=== PATIENT | male | born 1960 | race Caucasian/White ===

== ENCOUNTER 2021-01-25 18:36 | Emergency (ER) | payer OTHER ==
[2021-01-25] MEDS ORDERED: HYDROmorphone 1 MG/ML Syringe IM ONE (19:20)
--- NOTE | 2021-01-25 19:30 | EDM.PDOC ---
ED HPI GENERAL MEDICAL PROBLEM - General Chief Complaint: Upper Extremity Injury/Pain Stated Complaint: RT SHOULDER PAIN Time Seen by Provider: 01/25/21 19:09 Source of Information: Reports: Patient History Limitations: Reports: No Limitations - History of Present Illness INITIAL COMMENTS - FREE TEXT/NARRATIVE: 60-year-old male presents to the emergency department this evening with complaints of right shoulder injury. Patient states he was lifting overhead weights on an incline bench when he developed right shoulder pain. Patient states that the pain was sudden and sharp stabbing. Patient stopped lifting and ice the area and took 1 Aleve and attempted to go to bed for the night however he states his left shoulder is so painful that he cannot rest. 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 Patient is unable to raise his arm laterally or in front of him due to the pain in his anterior shoulder specifically at the glenohumeral joint area. Onset: Today, Sudden Right Upper Arm Pain Score (Numeric/FACES): 8 - Related Data Allergies Allergy/AdvReac Type Severity Reaction Status Date / Time No Known Allergies Allergy Verified 01/25/21 18:47 Home Meds: Home Meds Amino Acids. 1 dose PO DAILY 01/25/21 [History] Creatine. 1 dose PO DAILY 01/25/21 [History] Past Medical History - Past Surgical History Musculoskeletal Surgical History: Reports: Arthroscopic Knee, Other (See Below) Other Musculoskeletal Surgeries/Procedures:: discectomy x2, L5 fusion, meniscus repair Social & Family History - Tobacco Use Tobacco Use Status *Q: Never Tobacco User Second Hand Smoke Exposure: No - Recreational Drug Use Recreational Drug Use: No Review of Systems - Review of Systems Review Of Systems: Comprehensive ROS is negative, except as noted in HPI. ED EXAM, GENERAL - Physical Exam Exam: See Below Exam Limited By: No Limitations General Appearance: Alert, WD/WN, Mild Distress Ears: Normal External Exam, Hearing Grossly Normal Nose: Normal Inspection Throat/Mouth: Normal Inspection, Normal Lips, Normal Voice, No Airway Compromise Head: Atraumatic, Normocephalic Neck: Normal Inspection, Supple, Non-Tender, Full Range of Motion Respiratory/Chest: No Respiratory Distress, No Accessory Muscle Use Cardiovascular: Normal Peripheral Pulses Peripheral Pulses: 2+: Radial (L), Radial (R) (Male) Exam: Deferred Rectal (Males) Exam: Deferred Back Exam: Normal Inspection, Full Range of Motion Extremities: Normal Inspection, No Pedal Edema, Normal Capillary Refill, Limited Range of Motion (Right shoulder unable to raise right arm laterally or anteriorly due to discomfort). No: Normal Range of Motion, Non-Tender (Anterior humeral head is painful with palpation) Neurological: Alert, Oriented, Normal Cognition Psychiatric: Normal Affect, Normal Mood Skin Exam: Warm, Dry, Intact, Normal Color, No Rash Lymphatic: No Adenopathy Course - Vital Signs Text/Narrative:: 60-year-old male presents to the emergency department complaints of a right shoulder injury. Patient was lifting weights this evening above head on an incline bench when he developed sudden sharp stabbing shearing pain to his right anterior shoulder area. Denies hearing up popping, cracking or feeling any tearing however he states that after he stopped he had so much pain he was unable to raise his right arm. He states he did take an Aleve at that time and ice the area and then attempted to go to bed however he said it was so painful that he cannot sleep. Upon assessment the patient is unable to raise his arm laterally or out in front of him due to pain in his glenohumeral area. Once his arms are raised laterally it is not painful for him to push down against resistance however lifting up against resistance is exquisitely painful. I have ordered an x-ray of the right shoulder area. And pain medication Last Recorded V/S: Last Vital Signs Temp 97.1 F 01/25/21 18:45 Pulse 69 01/25/21 18:45 Resp 16 01/25/21 18:45 BP Pulse Ox 98 01/25/21 18:45 - Orders/Labs/Meds Orders: Active Orders 24 hr Category Date Time Status Shoulder Comp Rt [CR] Stat Exams 01/25/21 19:19 Taken Meds: Medications Discontinued Medications Generic Name Dose Route Start Last Admin Trade Name Linda PRN Reason Stop Dose Admin Hydromorphone HCl 1 mg 01/25/21 19:20 01/25/21 19:32 Hydromorphone 1 Mg/Ml Syringe IM 01/25/21 19:21 1 mg ONETIME ONE Administration Departure - Departure Time of Disposition: 20:32 Disposition: Home, Self-Care 01 Condition: Good Clinical Impression: Right shoulder injury Qualifiers: Encounter type: initial encounter Qualified Code(s): S49.91XA - Unspecified injury of right shoulder and upper arm, initial encounter - Discharge Information Instructions: Shoulder Pain, [id number] Referrals: Alex Poole MD [Primary Care Provider] - Forms: ED Department Discharge Additional Instructions: Were seen in the emergency department this evening with complaints of right shoulder injury after lifting weights. An x-ray was completed and no acute fractures are appreciated. You are also given a shot of pain medication called Dilaudid which did not seem to help much. I have given your prescription for Percocet you may take 1-2 tabs every 6 hours as needed for more severe pain. Ice the area 30 minutes at a time every 3 hours while awake. May take ibuprofen 600 mg every 6 hours as needed for pain or Aleve 2 tabs every 12 hours as needed for pain. Recommended using an arm sling and you did not want this. You will need to follow up with Dr. Mariee, orthopaedic surgeon. His clinic number is [phone]. Sepsis Event Note (ED) - Evaluation Sepsis Screening Result: No Definite Risk - Focused Exam Vital Signs: Vital Signs Temp Pulse Resp Pulse Ox 01/25/21 18:45 97.1 F 69 16 98 - My Orders Last 24 Hours: My Active Orders 01/25/21 19:19 Shoulder Comp Rt [CR] Stat - Assessment/Plan Last 24 Hours: My Active Orders 01/25/21 19:19 Shoulder Comp Rt [CR] Stat
--- NOTE | 2021-01-26 08:13 | CR ---
Right shoulder: 3 views of the right shoulder were obtained. Comparison: No prior shoulder study is available. Mild joint space narrowing is noted within the acromioclavicular joint with mild inferior spurring. Glenohumeral joint appears within normal limits. No acute fracture, dislocation or other bony abnormality is appreciated. Impression: 1. Mild degenerative change within the acromioclavicular joint. 2. Right shoulder study is otherwise unremarkable. Diagnostic code #2
== END 2021-01-25 20:51 | disposition home or self-care (01) ==
LOC: JD.ED 18:36
DX: S49.91XA Unspecified injury of right shoulder and upper arm, initial encounter (principal); X50.0XXA Overexertion from strenuous movement or load, initial encounter
CPT/HCPCS: 73030; 96372; 99283; J1170